=== PATIENT | male | born 1965 | race Caucasian/White ===

== ENCOUNTER 2021-04-28 22:20 | Emergency (ER) | payer OTHER ==
--- NOTE | 2021-04-28 22:24 | ERPHSYRPT ---
- History of Present Illness Time Seen by Provider: 04/28/21 22:24 Source: patient Exam Limitations: no limitations Physician History: This is a 56-year-old overweight white male who has had several day history of cough, loss of taste, fever, myalgias and arthralgias, shortness of breath, nausea and vomiting and was diagnosed today with COVID-19 infection. The specimen was obtained 48 hours ago. Patient symptom of cough is his biggest complaint. He denies chest pain. He does not have abdominal pain. Patient is on prednisone and is using a metered-dose inhaler of albuterol. Timing/Duration: day(s) (Symptoms for 3 to 4 days), worse Cough Quality/Degree: moderate, dry cough Associated Symptoms: fever, cough, muscle aches, sore throat, No chest pain/soreness Allergies/Adverse Reactions: Penicillins Adverse Reaction (Intermediate, Verified 04/28/21 22:32) Anaphylactic Reaction Home Medications: Albuterol 8 gm Mdi Hfa [Ventolin Hfa MDI] 2 puffs IH Q4HPRN PRN 04/28/21 [History] Prednisone 20 mg [Deltasone 20 mg] 20 mg PO DAILY 04/28/21 [History] Travel Risk - International Travel Have you traveled outside of the country in past 3 weeks: No - Coronavirus Screening Are you exhibiting any of the following symptoms?: Yes Symptoms: Fever, Cough: New Onset, Vomiting/Diarrhea, Loss of Taste or Smell, Headaches/Body Aches/Fatigue Close contact with a COVID-19 positive Pt in past 14-21 Days: No - Review of Systems Constitutional: Fever Eyes: No Symptoms Ears, Nose, & Throat: Throat Pain Respiratory: Cough Cardiac: No Symptoms Abdominal/Gastrointestinal: Nausea, Vomiting, Appetite Changes, No Abdominal Pain, No Diarrhea Genitourinary Symptoms: No Symptoms Musculoskeletal: Arthralgias, Myalgias Skin: No Symptoms Neurological: No Symptoms Psychological: No Symptoms Endocrine: No Symptoms Hematologic/Lymphatic: No Symptoms Immunological/Allergic: No Symptoms All Other Systems: Reviewed and Negative - Past Medical History Pertinent Past Medical History: Yes - Past Surgical History Past Surgical History: Yes - Nursing Vital Signs Nursing Vital Signs: Initial Vital Signs Temperature 99.4 F 04/28/21 22:21 Pulse Rate 121 H 04/28/21 22:21 Respiratory Rate 24 04/28/21 22:21 Blood Pressure 145/89 04/28/21 22:21 O2 Sat by Pulse Oximetry 94 L 04/28/21 22:21 Pain Scale Pain Intensity 0 - Physical Exam General Appearance: no apparent distress, alert, anxiety, obese Eye Exam: PERRL/EOMI, eyes nml inspection Ears, Nose, Throat Exam: normal ENT inspection, moist mucous membranes Neck Exam: normal inspection, non-tender, supple, full range of motion Respiratory Exam: normal breath sounds, lungs clear, airway intact, No chest tenderness, No respiratory distress Cardiovascular Exam: tachycardia Gastrointestinal/Abdomen Exam: soft, normal bowel sounds, No tenderness Rectal Exam: not done Back Exam: normal inspection, normal range of motion, No CVA tenderness, No vertebral tenderness Extremity Exam: normal inspection, normal range of motion, pelvis stable Neurologic Exam: alert, oriented x 3, cooperative, 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 tested, normal mood/affect, nml cerebellar function, nml station & gait, sensation nml Skin Exam: normal color, warm, dry Lymphatic Exam: No inguinal node tender (L) SpO2 Interpretation: borderline oxygenation SpO2: 94 O2 Delivery: Room Air - Course Nursing assessment & vital signs reviewed: Yes Ordered Tests: Active Orders 24 hr Category Date Time Status IV Insertion STAT Care 04/28/21 22:26 Active Isolation, Initiate & Maintain STAT Care 04/28/21 22:27 Active Pulse Oximetry (ED) STAT Care 04/28/21 22:26 Active CHEST 1 VIEW (PORTABLE) Stat Exams 04/28/21 22:27 Ordered BLOOD CULTURE Stat Lab 04/28/21 22:45 Received CBC W DIFF Stat Lab 04/28/21 22:26 Completed CMP Stat Lab 04/28/21 22:26 Completed D-DIMER QUANTITATIVE Stat Lab 04/28/21 22:26 Completed INFLUENZA A+B VIRGIL Stat Lab 04/28/21 22:45 Completed Lactic Acid Stat Lab 04/28/21 23:28 Completed Holmes Screen Stat Lab 04/28/21 22:26 Completed Respiratory Therapy Assessment DAILY RT 04/28/21 23:01 Completed Medication Summary Generic Name Dose Route Start Last Admin Trade Name Freq PRN Reason Stop Dose Admin Albuterol Sulfate 4 puff 04/28/21 23:01 04/28/21 23:11 Albuterol Common Canister Inhaler IH 05/28/21 23:00 4 puff Q4H PRN PRN Administration SHORTNESS OF BREATH Discontinued Medications Generic Name Dose Route Start Last Admin Trade Name Nithya PRN Reason Stop Dose Admin Hydrocodone Bitart/Acetaminophen 10 ml 04/28/21 22:39 04/28/21 22:53 Hydrocodone/Acetaminophen 5 Ml Udcup PO 04/28/21 22:40 10 ml STAT STA Administration Hydrocodone Bitart/Acetaminophen Confirm 04/28/21 22:52 Hydrocodone/Acetaminophen 5 Ml Udcup Administered 04/28/21 22:53 Dose 10 ml .ROUTE .STK-MED ONE Methylprednisolone Sodium 0 mg 04/28/21 22:39 04/28/21 22:53 Succinate 125 mg/ Sterile IV 04/28/21 22:40 125 mg Water 2 ml STAT ONE Administration Sodium Chloride 1,000 mls @ 999 mls/hr 04/28/21 22:26 04/28/21 22:35 Sodium Chloride 0.9% 1000 Ml IV 04/28/21 23:26 999 mls/hr .Q1H1M STA Administration Sodium Chloride Confirm 04/28/21 22:35 Sodium Chloride 0.9% 1000 Ml Administered 04/28/21 22:36 Dose 1,000 mls @ ud .ROUTE .STK-MED ONE Ibuprofen 600 mg 04/28/21 22:39 04/28/21 22:53 Ibuprofen 600 Mg Tablet PO 04/28/21 22:40 600 mg STAT ONE Administration Ibuprofen Confirm 04/28/21 22:51 Ibuprofen 600 Mg Tablet Administered 04/28/21 22:52 Dose 600 mg .ROUTE .STK-MED ONE Methylprednisolone Sodium Succinate Confirm 04/28/21 22:52 Methylprednis Sod Succ 125 Mg/2 Ml Vial Administered 04/28/21 22:53 Dose 125 mg .ROUTE .STK-MED ONE Sterile Water Confirm 04/28/21 22:52 Water For Injection,Sterile 10 Ml Vial Administered 04/28/21 22:53 Dose 10 ml IJ .STK-MED ONE Lab/Rad Data: Laboratory Result Diagrams 04/28/21 22:26 04/28/21 22:26 Laboratory Results 04/28/21 04/28/21 04/28/21 Range/Units 23:28 22:45 22:26 WBC (4.0-10.5) K/mm3 RBC (4.1-5.6) M/mm3 Hgb (12.5-18.0) gm/dl Hct (42-50) % MCV (78-100) fl MCH (26-32) pg MCHC (32-36) g/dl RDW (11.5-14.0) % Plt Count (150-450) K/mm3 MPV (7.5-11.0) fl Gran % (36.0-66.0) % Eos # (Auto) (0-0.5) Absolute Lymphs (auto) (1.0-4.6) Absolute Monos (auto) (0.0-1.3) Lymphocytes % (24.0-44.0) % Monocytes % (0.0-12.0) % Eosinophils % (0.00-5.0) % Basophils % (0.0-0.4) % Absolute Granulocytes (1.4-6.9) Basophils # (0-0.4) D-Dimer (215-500) ng/mL Sodium (137-145) mmol/L Potassium (3.5-5.1) mmol/L Chloride (98-107) mmol/L Carbon Dioxide (22-30) mmol/L Anion Gap (5-15) MEQ/L BUN (9-20) mg/dL Creatinine (0.66-1.25) mg/dL Estimated GFR ML/MIN Glucose (74-106) mg/dL Lactic Acid 1.7 (0.4-2.0) Calcium (8.4-10.2) mg/dL Total Bilirubin (0.2-1.3) mg/dL AST (17-59) U/L ALT (0-50) U/L Alkaline Phosphatase (38-126) U/L Serum Total Protein (6.3-8.2) g/dL Albumin (3.5-5.0) g/dL Monoscreen POSITIVE (Negative) Influenza Type A Ag NEGATIVE (NEGATIVE) Influenza Type B Ag NEGATIVE (NEGATIVE) 04/28/21 04/28/21 04/28/21 Range/Units 22:26 22:26 22:26 WBC 7.3 (4.0-10.5) K/mm3 RBC 4.95 (4.1-5.6) M/mm3 Hgb 14.1 (12.5-18.0) gm/dl Hct 41.4 L (42-50) % MCV 83.6 (78-100) fl MCH 28.5 (26-32) pg MCHC 34.1 (32-36) g/dl RDW 13.0 (11.5-14.0) % Plt Count 240 (150-450) K/mm3 MPV 8.9 (7.5-11.0) fl Gran % 79.4 H (36.0-66.0) % Eos # (Auto) 0 (0-0.5) Absolute Lymphs (auto) 0.94 L (1.0-4.6) Absolute Monos (auto) 0.53 (0.0-1.3) Lymphocytes % 13.0 L (24.0-44.0) % Monocytes % 7.3 (0.0-12.0) % Eosinophils % 0.0 (0.00-5.0) % Basophils % 0.3 (0.0-0.4) % Absolute Granulocytes 5.76 (1.4-6.9) Basophils # 0.02 (0-0.4) D-Dimer 300 (215-500) ng/mL Sodium 137 (137-145) mmol/L Potassium 3.6 (3.5-5.1) mmol/L Chloride 101 (98-107) mmol/L Carbon Dioxide 25 (22-30) mmol/L Anion Gap 13.8 (5-15) MEQ/L BUN 24 H (9-20) mg/dL Creatinine 1.18 (0.66-1.25) mg/dL Estimated GFR > 60.0 ML/MIN Glucose 149 H (74-106) mg/dL Lactic Acid (0.4-2.0) Calcium 8.4 (8.4-10.2) mg/dL Total Bilirubin 0.60 (0.2-1.3) mg/dL AST 47 (17-59) U/L ALT 36 (0-50) U/L Alkaline Phosphatase 117 (38-126) U/L Serum Total Protein 7.4 (6.3-8.2) g/dL Albumin 4.0 (3.5-5.0) g/dL Monoscreen (Negative) Influenza Type A Ag (NEGATIVE) Influenza Type B Ag (NEGATIVE) - Progress Progress: improved Air Movement: good Blood Culture(s) Obtained: Yes Antibiotics given: No Counseled pt/family regarding: lab results, diagnosis, need for follow-up, rad results - Departure Departure Disposition: Home Clinical Impression: COVID-19 virus infection, Mononucleosis Condition: Stable Critical Care Time: No Referrals: GARETH KELLER [ACTIVE STAFF] - Follow up/PCP as directed Additional Instructions: Take your medication as prescribed. Drink plenty of fluids. Quarantine yourself per protocol provided you. Prescriptions: Ondansetron ODT 4 MG [Zofran Odt 4 mg] 4 mg PO Q6H PRN PRN #10 tablet PRN Reason: Vomiting Hydrocodone/Acetaminophen [Hydrocodone-Acetamn 7.5-325/15] 10 ml PO Q8H PRN PRN #120 ml MDD 30 ml PRN Reason: Cough
[2021-04-28] MEDS ORDERED: Sodium Chloride 0.9% 1000 ML 1,000 ML IV STA (22:26)
[2021-04-28] MEDS ORDERED: Sodium Chloride 0.9% 1000 ML 1,000 ML ONE (22:35)
[2021-04-28] MEDS ORDERED: MOTRIN 600 MG PO ONE (22:39)
[2021-04-28] MEDS ORDERED: HYDROCODONE-ACETAMIN 2.5-108/5 ML SOLUTION PO STA ×2 (22:39→23:47)
[2021-04-28] MEDS ORDERED: solu-MEDROL 125 MG, Sterile H2O 10 ml 2 ML IV ONE ×2 (22:39)
[2021-04-28] MEDS ORDERED: MOTRIN 600 MG ONE (22:51)
[2021-04-28] MEDS ORDERED: HYDROCODONE-ACETAMIN 2.5-108/5 ML SOLUTION ONE (22:52)
[2021-04-28] MEDS ORDERED: Sterile H2O 10 ml IJ ONE (22:52)
[2021-04-28] MEDS ORDERED: solu-MEDROL ONE (22:52)
[2021-04-28 23:01] LABS: Absolute Neutrophil Ct (ANC) 5.76 (1.4-6.9); Basophil (Absolute #) 0.02 (0-0.4); Eosinophil (Absolute #) 0 (0-0.5); Hematocrit 41.4 % (42-50); Hemoglobin 14.1 gm/dl (12.5-18.0); Lymphocyte (Absolute #) 0.94 (1.0-4.6); Mean Cell Volume 83.6 fl (78-100); Mean Corpuscular Hemoglobin 28.5 pg (26-32); Mean Corpuscular Hgb Concent. 34.1 g/dl (32-36); Mean Platelet Volume 8.9 fl (7.5-11.0); Monocyte (Absolute #) 0.53 (0.0-1.3); Monocytes % 7.3 % (0.0-12.0); Neutrophil % 79.4 % (36.0-66.0); Platelet Count 240 K/mm3 (150-450); Red Blood Count 4.95 M/mm3 (4.1-5.6); White Blood Count 7.3 K/mm3 (4.0-10.5)
[2021-04-28] MEDS ORDERED: VENTOLIN COMMON CANISTER IH PRN (23:01)
[2021-04-28 23:23] LABS: ALKALINE PHOSPHATASE 117 U/L (38-126); ANION GAP 13.8 MEQ/L (5-15); BLOOD UREA NITROGEN 24 mg/dL (9-20); CHLORIDE 101 mmol/L (98-107); Calcium 8.4 mg/dL (8.4-10.2); Carbon Dioxide 25 mmol/L (22-30); Creatinine 1 1.18 mg/dL (0.66-1.25); EST GLOMERULAR FILTRATION RATE > 60.0 ML/MIN; Glucose 149 mg/dL (74-106); Potassium 3.6 mmol/L (3.5-5.1); SGOT/AST 47 U/L (17-59); SGPT/ALT 36 U/L (0-50); SODIUM 137 mmol/L (137-145); Total Protein 7.4 g/dL (6.3-8.2)
[2021-04-28 23:29] LABS: INFLUENZA A NEGATIVE (NEGATIVE); INFLUENZA B NEGATIVE (NEGATIVE)
[2021-04-28 23:37] VITALS: O2SAT 94
[2021-04-29] MEDS ORDERED: HYDROCODONE-ACETAMIN 2.5-108/5 ML SOLUTION ONE (00:30)
[2021-04-29 00:40] VITALS: BP 126/74; PULSE 105
== END 2021-04-29 00:37 | disposition home or self-care (01) ==
LOC: ED 22:20
DX: U07.1 COVID-19 (principal); B27.90 Infectious mononucleosis, unspecified without complication; R05.9 Cough, unspecified; R43.9 Unspecified disturbances of smell and taste; R50.9 Fever, unspecified; M79.10 Myalgia, unspecified site; R06.02 Shortness of breath; R11.2 Nausea with vomiting, unspecified; Z79.52 Long term (current) use of systemic steroids; Z79.891 Long term (current) use of opiate analgesic
CPT/HCPCS: 36000; 36415; 80053; 83605; 85025; 85379; 86308; 87040; 87400; 93005; 94640; 94760; 96360; 96374; 99284; J2930; A9270-GY

== ENCOUNTER 2021-05-02 08:02 | Inpatient (IN) | payer OTHER ==
[2021-05-02] MEDS ORDERED: Sodium Chloride 0.9% 1000 ML 1,000 ML ONE (08:05)
[2021-05-02] MEDS ORDERED: solu-MEDROL 125 MG, Sterile H2O 10 ml 2 ML IV ONE ×2 (08:14)
[2021-05-02] MEDS ORDERED: Ativan 2 MG/1 ML VIAL IV ONE (08:14)
--- NOTE | 2021-05-02 08:14 | ERPHSYRPT ---
- History of Present Illness Time Seen by Provider: 05/02/21 08:10 Source: patient Exam Limitations: no limitations Physician History: This is a 56-year-old white male patient who presents with worsening shortness of breath over the last few days. Patient was diagnosed with Covid infection a few days ago. He has been to the infusion clinic as well. His symptoms of c ough shortness of breath and chest pain were worsening over the weekend. He was seen in this emergency department on 04/28/2021. He was given a prescription of hydrocodone elixir for his cough and he already had prednisone and a metered- dose inhaler of albuterol. Patient is here today because he feels short of breath and his room air oxygenation was 60 to 62% based on his pulse oximetry at home. Timing/Duration: day(s), worse (Over the last few days) Activities at Onset: activity (Worsens), rest (Improves) Severity of Dyspnea-Max: moderate Severity of Dyspnea-Current: moderate Modifying Factors: Improves With: activity (Worsens), coughing, oxygen Associated Symptoms: anxiety, cough, chest pain/discomfort Allergies/Adverse Reactions: Penicillins Adverse Reaction (Intermediate, Verified 05/02/21 08:26) Anaphylactic Reaction Home Medications: Albuterol 8 gm Mdi Hfa [Ventolin Hfa MDI] 2 puffs IH Q4HPRN PRN 04/28/21 [History] Hx Tetanus, Diphtheria Vaccination/Date Given: No Hx Influenza Vaccination/Date Given: No Hx Pneumococcal Vaccination/Date Given: No Travel Risk - International Travel Have you traveled outside of the country in past 3 weeks: No - Coronavirus Screening Are you exhibiting any of the following symptoms?: Yes Symptoms: Cough: New Onset, Shortness of Breath, Loss of Taste or Smell, Headaches/Body Aches/Fatigue Close contact with a COVID-19 positive Pt in past 14-21 Days: No - Vaccine Status Have you recieved a Covid-19 vaccination: No - Review of Systems Constitutional: No Symptoms Eyes: No Symptoms Ears, Nose, & Throat: No Symptoms Respiratory: Cough, Dyspnea Cardiac: Chest Pain Abdominal/Gastrointestinal: No Symptoms Genitourinary Symptoms: No Symptoms Musculoskeletal: Arthralgias, Myalgias Skin: No Symptoms Neurological: No Symptoms Psychological: Anxiety Endocrine: No Symptoms Hematologic/Lymphatic: No Symptoms Immunological/Allergic: No Symptoms All Other Systems: Reviewed and Negative - Past Medical History Pertinent Past Medical History: Yes Neurological History: No Pertinent History ENT History: No Pertinent History Cardiac History: No Pertinent History Respiratory History: Pneumonia Endocrine Medical History: No Pertinent History Musculoskeletal History: Fractures GI Medical History: No Pertinent History History: No Pertinent History Psycho-Social History: No Pertinent History Male Reproductive Disorders: No Pertinent History Other Medical History: fx ribs - Past Surgical History Past Surgical History: Yes - Social History Smoking Status: Former smoker Exposure to second hand smoke: Yes Drug Use: none Patient Lives Alone: No - Nursing Vital Signs Nursing Vital Signs: Initial Vital Signs Temperature 99.3 F 05/02/21 08:15 Pulse Rate 125 H 05/02/21 08:15 Respiratory Rate 32 H 05/02/21 08:15 Blood Pressure 141/87 05/02/21 08:15 O2 Sat by Pulse Oximetry 62 L 05/02/21 08:15 Pain Scale Pain Intensity 3 - Physical Exam General Appearance: mild distress, alert, anxiety Eye Exam: PERRL/EOMI, eyes nml inspection Ears, Nose, Throat Exam: hearing grossly normal, normal ENT inspection, normal pharynx Neck Exam: normal inspection, non-tender, supple, full range of motion Respiratory Exam: normal breath sounds, chest tenderness, lungs clear, respiratory distress, airway intact Cardiovascular/Chest Exam: tachycardia Abdominal/Gastrointestinal Exam: soft, normal bowel sounds, No tenderness Rectal Exam: not done Extremity Exam: non-tender Neurologic Exam: alert, oriented x 3, cooperative, 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 tested, normal mood/affect, nml cerebellar function, nml station & gait, sensation nml Skin Exam: normal color, warm, dry Lymphatic Exam: No adenopathy SpO2 Interpretation: hypoxic O2 Delivery: Room Air - Course Nursing assessment & vital signs reviewed: Yes EKG Interpreted by Me: RATE (110), Sinus Tach, NORMAL AXIS, NORMAL INTERVALS, NORMAL QRS, NORMAL ST-T, Other (No acute ischemic changes.) Ordered Tests: Active Orders 24 hr Category Date Time Status EKG-ER Only STAT Care 05/02/21 08:14 Active IV Insertion STAT Care 05/02/21 08:14 Active Pulse Oximetry (ED) STAT Care 05/02/21 08:14 Active CHEST 1 VIEW (PORTABLE) Stat Exams 05/02/21 08:15 Completed CHEST WITH CONTRAST [CT] Stat Exams 05/02/21 09:08 Completed ARTERIAL BLOOD GASES Stat Lab 05/02/21 08:08 Completed BLOOD CULTURE Stat Lab 05/02/21 08:40 Received CBC W DIFF Stat Lab 05/02/21 08:30 Completed CMP Stat Lab 05/02/21 08:30 Completed D-DIMER QUANTITATIVE Stat Lab 05/02/21 08:30 Completed INFLUENZA A+B VIRGIL Stat Lab 05/02/21 08:40 Completed Lactic Acid Stat Lab 05/02/21 08:08 Completed Lactic Acid Stat Lab 05/02/21 10:19 Received Manual Differential NC Stat Lab 05/02/21 08:30 Completed NT PRO BNP Stat Lab 05/02/21 08:30 Completed TROPONIN Q3H Lab 05/02/21 08:30 Completed TROPONIN Q3H Lab 05/02/21 11:15 Ordered TROPONIN Q3H Lab 05/02/21 14:15 Ordered TROPONIN Q3H Lab 05/02/21 17:15 Ordered TROPONIN Q3H Lab 05/02/21 20:15 Ordered Transfer Order Routine Transfer 05/02/21 Ordered Medication Summary Generic Name Dose Route Start Last Admin Trade Name Freq PRN Reason Stop Dose Admin Sodium Chloride 1,000 mls @ 100 mls/hr 05/02/21 08:15 05/02/21 08:20 Sodium Chloride 0.9% 1000 Ml IV 06/01/21 08:14 100 mls/hr .Q10H PAT Administration Discontinued Medications Generic Name Dose Route Start Last Admin Trade Name Freq PRN Reason Stop Dose Admin Methylprednisolone Sodium 0 mg 05/02/21 08:14 05/02/21 08:23 Succinate 125 mg/ Sterile IV 05/02/21 08:15 125 mg Water 2 ml STAT ONE Administration Sodium Chloride Confirm 05/02/21 08:05 Sodium Chloride 0.9% 1000 Ml Administered 05/02/21 08:06 Dose 1,000 mls @ ud .ROUTE .STK-MED ONE Lorazepam 1 mg 05/02/21 08:14 05/02/21 08:22 Lorazepam 2 Mg/1 Ml 2 Mg Vial IV 05/02/21 08:15 1 mg STAT ONE Administration Lorazepam Confirm 05/02/21 08:21 Lorazepam 2 Mg/1 Ml 2 Mg Vial Administered 05/02/21 08:22 Dose 2 mg .ROUTE .STK-MED ONE Methylprednisolone Sodium Succinate Confirm 05/02/21 08:22 Methylprednis Sod Succ 125 Mg/2 Ml Vial Administered 05/02/21 08:23 Dose 125 mg .ROUTE .STK-MED ONE Sterile Water Confirm 05/02/21 08:21 Water For Injection,Sterile 10 Ml Vial Administered 05/02/21 08:22 Dose 10 ml IJ .STK-MED ONE Lab/Rad Data: Laboratory Result Diagrams 05/02/21 08:30 05/02/21 08:30 Laboratory Results 05/02/21 05/02/21 05/02/21 Range/Units 08:40 08:30 08:30 WBC (4.0-10.5) K/mm3 RBC (4.1-5.6) M/mm3 Hgb (12.5-18.0) gm/dl Hct (42-50) % MCV (78-100) fl MCH (26-32) pg MCHC (32-36) g/dl RDW (11.5-14.0) % Plt Count (150-450) K/mm3 MPV (7.5-11.0) fl Segmented Neutrophils (36.-66.) % Band Neutrophils (0.0-2.0) % Lymphocytes (Manual) (24-44) % Monocytes (Manual) (0.0-12.0) % Platelet Estimate (NORMAL) RBC Morphology D-Dimer 875 H* (215-500) ng/mL Puncture Site pCO2 (35-45) mmHg pO2 (75-100) mmHg Base Excess (-2.0-2.0) O2 Saturation (94-100) g/dF ABG pH (7.35-7.45) ABG HCO3 (22-28) ABG O2 Sat (Measured) (95-100) % Tony Test A-a Gradient a/A Ratio Hemoglobin Carboxyhemoglobin (0.0-6.9) % THgb Methemoglobin (1.4-1.5) % Potassium (3.5-5.1) Temperature C POC O2 Flow Rate % Sodium (137-145) mmol/L Chloride (98-107) mmol/L Carbon Dioxide (22-30) mmol/L Anion Gap (5-15) MEQ/L BUN (9-20) mg/dL Creatinine (0.66-1.25) mg/dL Estimated GFR ML/MIN Glucose (74-106) mg/dL Lactic Acid (0.4-2.0) Calcium (8.4-10.2) mg/dL Total Bilirubin (0.2-1.3) mg/dL AST (17-59) U/L ALT (0-50) U/L Alkaline Phosphatase (38-126) U/L Troponin I < 0.012 (0.000-0.034) ng/mL NT-Pro-B Natriuret Pep (0-900) pg/mL Serum Total Protein (6.3-8.2) g/dL Albumin (3.5-5.0) g/dL Influenza Type A Ag NEGATIVE (NEGATIVE) Influenza Type B Ag NEGATIVE (NEGATIVE) 05/02/21 05/02/21 05/02/21 Range/Units 08:30 08:30 08:08 WBC 11.3 H (4.0-10.5) K/mm3 RBC 5.08 (4.1-5.6) M/mm3 Hgb 14.3 (12.5-18.0) gm/dl Hct 43.4 (42-50) % MCV 85.4 (78-100) fl MCH 28.1 (26-32) pg MCHC 32.9 (32-36) g/dl RDW 12.8 (11.5-14.0) % Plt Count 373 (150-450) K/mm3 MPV 9.2 (7.5-11.0) fl Segmented Neutrophils 84 H (36.-66.) % Band Neutrophils 1 (0.0-2.0) % Lymphocytes (Manual) 12 L (24-44) % Monocytes (Manual) 3 (0.0-12.0) % Platelet Estimate NORMAL (NORMAL) RBC Morphology NORMAL D-Dimer (215-500) ng/mL Puncture Site LEFT BRACHIAL pCO2 28 L (35-45) mmHg pO2 127 H* (75-100) mmHg Base Excess 4.5 H (-2.0-2.0) O2 Saturation 96.9 (94-100) g/dF ABG pH 7.57 H* (7.35-7.45) ABG HCO3 25.7 (22-28) ABG O2 Sat (Measured) 99.1 (95-100) % Tony Test NOT APPLICABLE A-a Gradient 551 a/A Ratio 0.19 Hemoglobin 14.5 Carboxyhemoglobin 1.3 (0.0-6.9) % THgb Methemoglobin 1.0 L (1.4-1.5) % Potassium 3.7 3.5 (3.5-5.1) Temperature 37.0 C POC O2 Flow Rate 100 % Sodium 139 (137-145) mmol/L Chloride 98 (98-107) mmol/L Carbon Dioxide 28 (22-30) mmol/L Anion Gap 16.2 H (5-15) MEQ/L BUN 22 H (9-20) mg/dL Creatinine 1.15 (0.66-1.25) mg/dL Estimated GFR > 60.0 ML/MIN Glucose 123 H (74-106) mg/dL Lactic Acid 2.9 H (0.4-2.0) Calcium 8.5 (8.4-10.2) mg/dL Total Bilirubin 1.00 (0.2-1.3) mg/dL AST 59 (17-59) U/L ALT 42 (0-50) U/L Alkaline Phosphatase 132 H (38-126) U/L Troponin I (0.000-0.034) ng/mL NT-Pro-B Natriuret Pep 400 (0-900) pg/mL Serum Total Protein 7.4 (6.3-8.2) g/dL Albumin 4.1 (3.5-5.0) g/dL Influenza Type A Ag (NEGATIVE) Influenza Type B Ag (NEGATIVE) - Progress Progress: improved, re-examined Air Movement: good Progress Note: 05/02/21 09:06 Chest x-ray shows new moderate diffuse bilateral airspace disease without consolidation or effusion. 05/02/21 10:57 Medical decision making: This patient needs inpatient monitoring and management. I will give Dr. Varela a phone call. The patient, without oxygen, drops to 87 to 89% on room air. Blood Culture(s) Obtained: Yes Discussed with : Other (Dr. Varela) Counseled pt/family regarding: lab results, diagnosis, rad results - Departure Departure Disposition: In-patient Admission Clinical Impression: Pneumonia due to COVID-19 virus, Hypoxia, Tachycardia with heart rate 100-120 beats per minute Condition: Fair Critical Care Time: Yes Critical Care Time(excluding separately billable procedures): Critical 30-74 mins (30 minutes) Referrals: DOCTOR,NO FAMILY [Primary Care Provider] - Follow up/PCP as directed
[2021-05-02] MEDS ORDERED: Sodium Chloride 0.9% 1000 ML 1,000 ML IV SCH (08:15)
[2021-05-02 08:18] LABS: A-aADO2 551; ABG HEMOGLOBIN 14.5; ABG POTASSIUM 3.5 (3.5-5.1); ABG SITE LEFT BRACHIAL; ARTERIAL BLD GAS O2 SATURATION 99.1 % (95-100); ARTERIAL BLOOD GAS BASE EXCESS 4.5 (-2.0-2.0); ARTERIAL BLOOD GAS FIO2 100 %; ARTERIAL BLOOD GAS PCO2 28 mmHg (35-45); ARTERIAL BLOOD GAS PO2 127 mmHg (75-100); ARTERIAL BLOOD GAS pH 7.57 (7.35-7.45); CARBOXYHEMOGLOBIN 1.3 % THgb (0.0-6.9); HCO3- 25.7 (22-28); HGB O2 SAT 96.9 g/dF (94-100); Lactic Acid 2.9 (0.4-2.0)
[2021-05-02] MEDS ORDERED: Ativan 2 MG/1 ML VIAL ONE (08:21)
[2021-05-02] MEDS ORDERED: Sterile H2O 10 ml IJ ONE (08:21)
[2021-05-02] MEDS ORDERED: solu-MEDROL ONE (08:22)
--- NOTE | 2021-05-02 08:56 | XRAY ---
Indication: Cough and short of breath. Positive Covid 19. Comparison: February 02, 2013. Portable apical lordotic chest demonstrates new moderate diffuse bilateral airspace disease without consolidation/large effusion. Heart not enlarged. Bony thorax intact.
[2021-05-02 09:05] LABS: Hematocrit 43.4 % (42-50); Hemoglobin 14.3 gm/dl (12.5-18.0); Mean Cell Volume 85.4 fl (78-100); Mean Corpuscular Hemoglobin 28.1 pg (26-32); Mean Corpuscular Hgb Concent. 32.9 g/dl (32-36); Mean Platelet Volume 9.2 fl (7.5-11.0); Platelet Count 373 K/mm3 (150-450); Red Blood Count 5.08 M/mm3 (4.1-5.6); Red Cell Distribution Width 12.8 % (11.5-14.0); White Blood Count 11.3 K/mm3 (4.0-10.5)
[2021-05-02 09:12] LABS: ALBUMIN 4.1 g/dL (3.5-5.0); ALKALINE PHOSPHATASE 132 U/L (38-126); ANION GAP 16.2 MEQ/L (5-15); BLOOD UREA NITROGEN 22 mg/dL (9-20); CHLORIDE 98 mmol/L (98-107); Calcium 8.5 mg/dL (8.4-10.2); Carbon Dioxide 28 mmol/L (22-30); Creatinine 1 1.15 mg/dL (0.66-1.25); EST GLOMERULAR FILTRATION RATE > 60.0 ML/MIN; Glucose 123 mg/dL (74-106); NT PRO BNP 400 pg/mL (0-900); Potassium 3.7 mmol/L (3.5-5.1); SGOT/AST 59 U/L (17-59); SGPT/ALT 42 U/L (0-50); SODIUM 139 mmol/L (137-145); Total Protein 7.4 g/dL (6.3-8.2)
[2021-05-02 09:13] LABS: BAND 1 % (0.0-2.0); Lymphocytes 12 % (24-44); Monocyte 3 % (0.0-12.0); Neutrophils 84 % (36.-66.); Platelet Estimate NORMAL (NORMAL); Total Cells Counted 100
[2021-05-02 09:37] LABS: INFLUENZA A NEGATIVE (NEGATIVE); INFLUENZA B NEGATIVE (NEGATIVE)
--- NOTE | 2021-05-02 10:31 | XRAY ---
Indication: Short of breath, nausea, and vomiting. Elevated d-dimer. Multiple contiguous images obtained through the chest using 80 cc Isovue 370 contrast and PE protocol. Comparison: February 06, 2013. There is good opacification of the pulmonary arteries to include the lobar and segmental branches. No pulmonary embolus. Heart is not enlarged. Aorta is normal in course and caliber. No pathologic mediastinal/hilar lymphadenopathy. Enlarging moderate-sized hiatal hernia. Lungs demonstrates new moderate/significant diffuse bilateral airspace disease without consolidation/effusion. Bony thorax intact. Limited upper abdomen again demonstrates mild fatty liver and a few splenic calcified granulomas. Impression: 1. Negative pulmonary embolus. 2. New diffuse bilateral airspace disease. Commonly report imaging features of Covid 19 pneumonia are present. Other processes such as influenza pneumonia and organizing pneumonia, as can be seen with drug toxicity and connective-tissue disease, can cause a similar imaging pattern. 2. Incidental hiatal hernia, fatty liver, and old granulomatous disease.
[2021-05-02] MEDS ORDERED: Ativan 1 MG PO PRN (13:14)
[2021-05-02] MEDS ORDERED: Zofran 4 MG/2 ML VIAL IV PRN (13:14)
[2021-05-02] MEDS: Sodium Chloride 0.9% 1000 ML 1,000 ML IV SCH (13:33)
[2021-05-02] MEDS ORDERED: TYLENOL EXTRA STRENGTH 500 MG PO PRN (13:46)
[2021-05-02] MEDS: OLUMIANT PO SCH (13:55)
[2021-05-02] MEDS: DECADRON 10MG INJ. IV SCH (13:56)
[2021-05-02] MEDS: ENOXAPARIN SODIUM SQ SCH (13:57)
[2021-05-02] MEDS ORDERED: REMDESIVIR 200 MG in Sodium Chloride 0.9% 250 ML 250 ML IV ONE (14:30)
[2021-05-02 16:04] LABS: Appearance CLEAR (CLEAR); Bilirubin NEGATIVE (NEGATIVE); Blood SMALL Ery/ul (0-5); Glucose NEGATIVE (NEGATIVE); Ketones SMALL (NEGATIVE); Leukocyte Esterase NEGATIVE (NEGATIVE); Nitrite NEGATIVE (NEGATIVE); Protein,Urine Dip 30 (Negative); Specific Gravity 1.048 (1.005-1.025); Urobilinogen 4 mg/dL (0-1)
[2021-05-02] MEDS: HYDROCODONE-CHLORPHEN ER SUSP PO PRN (18:28)
[2021-05-03 05:25] LABS: Hematocrit 38.2 % (42-50); Hemoglobin 12.4 gm/dl (12.5-18.0); Mean Cell Volume 86.4 fl (78-100); Mean Corpuscular Hemoglobin 28.1 pg (26-32); Mean Corpuscular Hgb Concent. 32.5 g/dl (32-36); Mean Platelet Volume 9.1 fl (7.5-11.0); Platelet Count 371 K/mm3 (150-450); Red Blood Count 4.42 M/mm3 (4.1-5.6); Red Cell Distribution Width 12.8 % (11.5-14.0); White Blood Count 9.5 K/mm3 (4.0-10.5)
[2021-05-03 05:47] LABS: ALBUMIN 3.5 g/dL (3.5-5.0); ALKALINE PHOSPHATASE 101 U/L (38-126); ANION GAP 12.5 MEQ/L (5-15); BLOOD UREA NITROGEN 27 mg/dL (9-20); CHLORIDE 103 mmol/L (98-107); Carbon Dioxide 25 mmol/L (22-30); Creatinine 1 0.98 mg/dL (0.66-1.25); EST GLOMERULAR FILTRATION RATE > 60.0 ML/MIN; Glucose 159 mg/dL (74-106); NT PRO BNP 267 pg/mL (0-900); Potassium 3.9 mmol/L (3.5-5.1); SGOT/AST 34 U/L (17-59); SGPT/ALT 35 U/L (0-50); SODIUM 137 mmol/L (137-145); Total Protein 6.8 g/dL (6.3-8.2)
--- NOTE | 2021-05-03 08:09 | HP ---
CHIEF COMPLAINT: Shortness of breath. HISTORY OF PRESENT ILLNESS: The patient is a 56-year-old white male. He has been coughing for several weeks. He was seen in the emergency room several days ago and was given a prescription of Tussionex, prednisone, Albuterol and sent home. He came back today. His O2 was down to 62% so he was started on oxygen. He tested positive for COVID and we made arrangements to keep him. He actually went to the infusion center yesterday, the day before admission also. TRAVEL RISK: No international travel. CORONAVIRUS SCREENING: Exposure to COVID: He is not exactly for sure who gave it to him. MEDICATIONS: Albuterol. ALLERGIES: PENICILLINS. PAST MEDICAL HISTORY: He has been treated for pneumonia once and GI problems. REVIEW OF SYSTEMS: CONSTITUTIONAL: Just tired and achy, not too bad. HEENT: He still has his taste, just short of breath at rest and on any activity his O2 he states drops in the mid 80's. GI: No problems. MUSCULOSKELETAL: Aching all over. SKIN: No problems. ENDOCRINE: No diabetes. PSYCHOLOGIC: He feels anxious. SOCIAL HISTORY: He is a smoker apparently. PHYSICAL EXAMINATION: VITAL SIGNS: Temperature F, pulse , respirations HEENT: Pupils equal and reactive to light. NECK: Supple without adenopathy. CHEST: Clear. CVS: Regular rate. No murmurs or gallops. ABDOMEN: Soft. No tenderness or organomegaly. EXTREMITIES: Fair pulses. No edema. LAB DATA AND TESTS: His EKG is normal. Chest x-ray showed COVID pneumonia. His potassium was 3.7. His D-dimer was 875. White blood cell count 11.3, hemoglobin 14.3. Troponins were normal. Blood gas showed pCO2 low at 28, pH was 7.57 so he is hyperventilating, get his O2 up to 96 by the time this was taken. IMPRESSION: The patient has COVID pneumonia moderate with hypoxia. Negative for influenza. PLAN: Will treat him with all the normal COVID medicines Remdesivir, get cTnI, will anticoagulated him since the D-dimer is elevated. Give him some Ativan if needed. PROGNOSIS: [place] to be fair.
[2021-05-03] MEDS ORDERED: VENTOLIN COMMON CANISTER IH PRN (08:26)
[2021-05-03] MEDS: OLUMIANT PO SCH (10:16)
[2021-05-03] MEDS: ENOXAPARIN SODIUM SQ SCH (10:16)
[2021-05-03] MEDS: DECADRON 10MG INJ. IV SCH (10:16)
[2021-05-03] MEDS: REMDESIVIR 100 MG in Sodium Chloride 0.9% 100 ML BAG 100 ML IV SCH (10:19)
[2021-05-03] MEDS: HYDROCODONE-CHLORPHEN ER SUSP PO PRN (10:30)
--- NOTE | 2021-05-03 12:14 | PROG NOTE ---
DATE: 05/03/2021 CHIEF COMPLAINT: Very short of breath, vomiting. HISTORY: The patient is a 56-year-old white male diagnosed with COVID about a week ago. He came to the emergency room. I believe he got some antibodies, Zithromax and prednisone. He came back last night when he could not get his breath at all. 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 His O2 saturation was 61% when he got to the emergency room apparently and at home on oximeter. He has been coughing quite a bit and coughed up some blood. He has a Ventolin inhaler which he has been using. He is disabled secondary to his arthritis and shortness of breath from his lung cancer treatment. He is also a diabetic. He is very heavy. I do not have his medicines at home yet except he is on 100 units of Lantus and a large dose of Humalog and also another shot for his diabetes. Symptoms of cough. No loss of taste or smell. No vaccines. REVIEW OF SYSTEMS: CONSTITUTIONAL: Symptoms as above. HEENT: No problems hearing or seeing. CHEST: Chest hurts every time he coughs. It is better this morning. CVS: He told me he had a heart attack but it is not on his chart here. He is on cholesterol drugs. ABDOMEN: Nausea and vomiting has stopped this morning. Been on Zofran for a couple of days. Normally he has no problem eating. He also has been admitted in the distant past for pneumonia. ENDOCRINE: He has diabetes. GI: Vomiting recently. SOCIAL HISTORY: He quit smoking three years ago. He lives with his . PHYSICAL EXAMINATION: VITAL SIGNS: Initially temperature 99F, pulse 120, respirations 32. O2 saturation was 62% on 6 liters. He is on 8 liters and running 95%. GENERAL APPEARANCE: A large gentleman in no distress, very talkative and pleasant. HEENT: Pupils equal and reactive to light. NECK: Supple without adenopathy. CHEST: Clear right now. CVS: No murmurs or gallops. Heart sounds are distant. ABDOMEN: Obese. No tenderness or organomegaly. EXTREMITIES: No edema. IMPRESSION: The patient is positive for COVID. D-dimer is 780. His CT showed new diffuse bilateral airspace disease which is COVID. EKG is normal. PLAN: The patient is being treated with Remdesivir. He is fully anticoagulated, Decadron, antibodies. His O2 will be monitored. PROGNOSIS: Fair.
[2021-05-03] MEDS: Sodium Chloride 0.9% 1000 ML 1,000 ML IV SCH (21:14)
[2021-05-04 05:15] LABS: Hematocrit 37.1 % (42-50); Hemoglobin 12.1 gm/dl (12.5-18.0); Mean Cell Volume 86.5 fl (78-100); Mean Corpuscular Hemoglobin 28.2 pg (26-32); Mean Corpuscular Hgb Concent. 32.6 g/dl (32-36); Mean Platelet Volume 9.2 fl (7.5-11.0); Platelet Count 356 K/mm3 (150-450); Red Blood Count 4.29 M/mm3 (4.1-5.6); Red Cell Distribution Width 12.5 % (11.5-14.0); White Blood Count 10.7 K/mm3 (4.0-10.5)
[2021-05-04 05:55] LABS: ALBUMIN 3.2 g/dL (3.5-5.0); ALKALINE PHOSPHATASE 85 U/L (38-126); ANION GAP 10.8 MEQ/L (5-15); BLOOD UREA NITROGEN 29 mg/dL (9-20); CHLORIDE 103 mmol/L (98-107); Carbon Dioxide 26 mmol/L (22-30); Creatinine 1 0.95 mg/dL (0.66-1.25); EST GLOMERULAR FILTRATION RATE > 60.0 ML/MIN; Glucose 129 mg/dL (74-106); Potassium 3.7 mmol/L (3.5-5.1); SGOT/AST 28 U/L (17-59); SGPT/ALT 28 U/L (0-50); SODIUM 136 mmol/L (137-145); Total Protein 6.4 g/dL (6.3-8.2)
[2021-05-04] MEDS: OLUMIANT PO SCH (08:42)
[2021-05-04] MEDS: REMDESIVIR 100 MG in Sodium Chloride 0.9% 100 ML BAG 100 ML IV SCH (08:43)
[2021-05-04] MEDS: ENOXAPARIN SODIUM SQ SCH (08:43)
[2021-05-04] MEDS: DECADRON 10MG INJ. IV SCH (08:43)
[2021-05-04] MEDS: Pepcid 20 MG PO SCH (21:01)
[2021-05-04] MEDS: MAALOX ES 30 ML UNIT DOSE PO PRN (21:02)
[2021-05-05] MEDS: Sodium Chloride 0.9% 1000 ML 1,000 ML IV SCH (02:50)
[2021-05-05 06:01] LABS: ALKALINE PHOSPHATASE 82 U/L (38-126); ANION GAP 10.6 MEQ/L (5-15); BLOOD UREA NITROGEN 22 mg/dL (9-20); CHLORIDE 104 mmol/L (98-107); Calcium 7.8 mg/dL (8.4-10.2); Carbon Dioxide 25 mmol/L (22-30); Creatinine 1 0.89 mg/dL (0.66-1.25); EST GLOMERULAR FILTRATION RATE > 60.0 ML/MIN; Glucose 108 mg/dL (74-106); Potassium 3.5 mmol/L (3.5-5.1); SGOT/AST 32 U/L (17-59); SGPT/ALT 37 U/L (0-50); SODIUM 136 mmol/L (137-145); Total Protein 6.2 g/dL (6.3-8.2)
[2021-05-05 08:35] LABS: Hematocrit 37.2 % (42-50); Hemoglobin 12.1 gm/dl (12.5-18.0); Mean Cell Volume 86.7 fl (78-100); Mean Corpuscular Hemoglobin 28.2 pg (26-32); Mean Corpuscular Hgb Concent. 32.5 g/dl (32-36); Mean Platelet Volume 9.6 fl (7.5-11.0); Platelet Count 334 K/mm3 (150-450); Red Blood Count 4.29 M/mm3 (4.1-5.6); Red Cell Distribution Width 12.6 % (11.5-14.0); White Blood Count 9.9 K/mm3 (4.0-10.5)
[2021-05-05] MEDS: DECADRON 10MG INJ. IV SCH (09:47)
[2021-05-05] MEDS: ENOXAPARIN SODIUM SQ SCH (09:47)
[2021-05-05] MEDS: OLUMIANT PO SCH (09:48)
[2021-05-05] MEDS: REMDESIVIR 100 MG in Sodium Chloride 0.9% 100 ML BAG 100 ML IV SCH (09:48)
[2021-05-05] MEDS: MAALOX ES 30 ML UNIT DOSE PO PRN ×2 (09:59→23:42)
--- NOTE | 2021-05-05 12:17 | PROG NOTE ---
DATE: 05/05/2021 BRIEF HISTORY: Patient states he feels better. He looks better. Unfortunately, still on 10 liters to keep his O2 at 90. He is coughing, not as much. He is afebrile. BP is good. We talked about trying prone. He understood that and said he will do it. His WBC was 9.9. Hgb was 12. Electrolytes were all normal. Sodium minimally low at 136. D-dimer was still elevated at 600, but it is down. IMPRESSION: 1. PATIENT HAS COVID-19 PNEUMONIA. He is improving and hopefully will be able to lower his O2 in the next day or 2 and get him home. PROGNOSIS: Good.
[2021-05-05] MEDS: Pepcid 20 MG PO SCH (21:02)
[2021-05-06] MEDS ORDERED: OCEAN Nasal Spray NS PRN ×2 (00:50→07:29)
[2021-05-06 06:57] LABS: Hematocrit 36.3 % (42-50); Hemoglobin 11.9 gm/dl (12.5-18.0); Mean Cell Volume 85.4 fl (78-100); Mean Corpuscular Hgb Concent. 32.8 g/dl (32-36); Mean Platelet Volume 9.4 fl (7.5-11.0); Platelet Count 341 K/mm3 (150-450); Red Blood Count 4.25 M/mm3 (4.1-5.6); Red Cell Distribution Width 12.6 % (11.5-14.0); White Blood Count 10.1 K/mm3 (4.0-10.5)
[2021-05-06 07:13] LABS: ALBUMIN 3.1 g/dL (3.5-5.0); ALKALINE PHOSPHATASE 75 U/L (38-126); ANION GAP 8.5 MEQ/L (5-15); BLOOD UREA NITROGEN 25 mg/dL (9-20); CHLORIDE 103 mmol/L (98-107); Calcium 7.9 mg/dL (8.4-10.2); Carbon Dioxide 28 mmol/L (22-30); Creatinine 1 0.97 mg/dL (0.66-1.25); EST GLOMERULAR FILTRATION RATE > 60.0 ML/MIN; Glucose 105 mg/dL (74-106); SGOT/AST 28 U/L (17-59); SGPT/ALT 39 U/L (0-50); SODIUM 135 mmol/L (137-145); Total Protein 6.1 g/dL (6.3-8.2)
[2021-05-06] MEDS: Sodium Chloride 0.9% 1000 ML 1,000 ML IV SCH (07:19)
[2021-05-06 08:23] VITALS: BP 119/76
[2021-05-06] MEDS: DECADRON 10MG INJ. IV SCH (09:27)
[2021-05-06] MEDS: OLUMIANT PO SCH (09:27)
[2021-05-06] MEDS: ENOXAPARIN SODIUM SQ SCH (09:27)
[2021-05-06] MEDS: REMDESIVIR 100 MG in Sodium Chloride 0.9% 100 ML BAG 100 ML IV SCH (09:29)
[2021-05-06 11:46] VITALS: O2SAT 92
[2021-05-06 12:02] VITALS: PULSE 88
== END 2021-05-06 13:00 | disposition home or self-care (01) | DRG 177 ==
LOC: ED 08:02 → MED SURG 13:05
PROVIDERS: ADMIT Family Medicine; ATTEND Family Medicine
DX: U07.1 COVID-19 (principal); J12.82 Pneumonia due to coronavirus disease 2019; R09.02 Hypoxemia; E11.9 Type 2 diabetes mellitus without complications; R79.89 Other specified abnormal findings of blood chemistry; R00.0 Tachycardia, unspecified; Z85.118 Personal history of other malignant neoplasm of bronchus and lung
CPT/HCPCS: 36000; 36415; 36600; 71045; 71260; 80053; 81001; 82375; 82803; 83605; 83880; 84484; 85025; 85027; 85379; 86308; 87040; 87086; 87400; 93005; 94640; 94760; 94762; 96360; 96374; 96375; 99284; 99285; 99291; J0248; J1100; J1650; J2060; J2930; A9270-GY

== ENCOUNTER 2022-10-14 19:35 | Emergency (ER) | payer OTHER ==
[2022-10-14] MEDS ORDERED: Fluor-I-Strip/Ful-Flo OP ONE ×2 (20:02→20:34)
[2022-10-14] MEDS ORDERED: Eye-Stream Solution ONE (20:03)
[2022-10-14] MEDS ORDERED: Erythromycin 1 GM ONE (20:12)
--- NOTE | 2022-10-14 20:20 | ERPHSYRPT ---
- History of Present Illness Time Seen by Provider: 10/14/22 19:39 Source: patient Exam Limitations: no limitations Patient Subjective Stated Complaint: I was mowing and after mowing, my eye was really hurting. Triage Nursing Assessment: Pt ambulated into ER without diff. Pt alert and oriented x4, pleasant and cooperative. Pt c/o Left eye pain. Pt states, "I was mowing today and when I was done, my left eye was really bothering me. I rinsed it out with water and rubbed it, but its still hurting". Pt finished mowing around 7pm when the pain started. Left eye is red, bloodshot. Pt's vision isn't really affected, was seeing 20/30 from left and right eye individually and also 20/30 with both eyes. Physician History: 57 years old presented in the ER with chief complaint of left eye pain and redness/watering started almost an hour ago after mowing yard. Patient reports he felt there was something in his eye and tried to wash it out but still feels something inside on the upper lid area. Denies any visual disturbance. Dull aching to sharp mild to moderate pain. Does not use contacts. Timing/Duration: hour(s) (1), constant, sudden, worse Location: left eye Severity: moderate Apparent Injury: possibly Associated Symptoms: pain, burning, itching, sensitivity to light, redness, No eyelid swelling Visual Assistive Devices: None Chemical Exposure: No Trauma: No Welding Arc/Tanning Bed Exposure: No Allergies/Adverse Reactions: Penicillins Adverse Reaction (Intermediate, Verified 10/14/22 19:57) Anaphylactic Reaction Home Medications: No Reportable Medications [No Reported Medications] 05/02/21 [History] Hx Tetanus, Diphtheria Vaccination/Date Given: No Hx Influenza Vaccination/Date Given: No Hx Pneumococcal Vaccination/Date Given: No Immunizations Up to Date: No Travel Risk - International Travel Have you traveled outside of the country in past 3 weeks: No - Coronavirus Screening Are you exhibiting any of the following symptoms?: No Close contact with a COVID-19 positive Pt in past 14-21 Days: No - Vaccine Status Have you recieved a Covid-19 vaccination: No - Review of Systems Constitutional: No Symptoms Eyes: Eye Pain, Eye Redness, Itchy, Photophobia, Tearing, Foreign Body Sensation Ears, Nose, & Throat: No Symptoms Respiratory: No Symptoms Cardiac: No Symptoms Genitourinary Symptoms: No Symptoms Skin: No Symptoms Neurological: No Symptoms - Past Medical History Pertinent Past Medical History: Yes Neurological History: No Pertinent History ENT History: No Pertinent History Cardiac History: No Pertinent History Respiratory History: Pneumonia Endocrine Medical History: No Pertinent History Musculoskeletal History: Fractures GI Medical History: No Pertinent History History: No Pertinent History Psycho-Social History: No Pertinent History Male Reproductive Disorders: No Pertinent History Other Medical History: fx ribs. Covid - Past Surgical History Past Surgical History: Yes - Social History Smoking Status: Never smoker Exposure to second hand smoke: Yes Drug Use: none Patient Lives Alone: No - Nursing Vital Signs Nursing Vital Signs: Initial Vital Signs Temperature 97.4 F 10/14/22 19:42 Pulse Rate 86 10/14/22 19:42 Respiratory Rate 18 10/14/22 19:42 Blood Pressure 140/95 10/14/22 19:42 O2 Sat by Pulse Oximetry 98 10/14/22 19:42 Pain Scale Pain Intensity 4 - Physical Exam General Appearance: no apparent distress, alert Vision Acuity Right Eye: 20/30 Vision Acuity Left Eye: 20/30 Eye Exam: right eye: normal inspection, left eye: conjunctival hemorrhage, conjunctival inflammation, bilateral eye: PERRL, EOMI Ears, Nose, Throat Exam: normal ENT inspection Neck Exam: normal inspection, non-tender, supple, full range of motion Respiratory Exam: normal breath sounds, lungs clear Cardiovascular Exam: regular rate/rhythm, normal heart sounds Neurologic: alert, oriented x 3, cooperative, terminal 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-XII nml as tested, nml station & gait Skin Exam: normal color SpO2 Interpretation: normal SpO2: 98 O2 Delivery: Room Air Procedures - Eye Procedure Time of Procedure: 20:01 Timeout: Performed Tetracaine Drops Administered: Yes Eye FB Removal: removal w/ cotton swab Remaining Material after FB Removal: none Eye Irrigated w/ Saline (ccs): 30 Antibiotic Oinment/Drps Admin: left eye Progress: Tolerated procedure very well Ordered Tests: Medication Summary Generic Name Dose Route Start Last Admin Trade Name Freq PRN Reason Stop Dose Admin Erythromycin 1 gm 10/14/22 20:22 Erythromycin Base 1 Gm Tube Eye Ointment OP 10/14/22 20:23 STAT STA Discontinued Medications Generic Name Dose Route Start Last Admin Trade Name Nithya PRN Reason Stop Dose Admin Erythromycin Confirm 10/14/22 20:12 Erythromycin Base 1 Gm Tube Eye Ointment Administered 10/14/22 20:13 Dose 1 gm .ROUTE .STK-MED ONE Eye Irrigation Solution Confirm 10/14/22 20:03 Sodium/Potassium/Loyd/Magnesium 30 Ml Eye Wash Administered 10/14/22 20:04 Dose 30 ml .ROUTE .STK-MED ONE Fluorescein Sodium Confirm 10/14/22 20:02 Fluorescein Sodium 1 Mg/Strip Strip Administered 10/14/22 20:03 Dose 1 mg OP .STK-MED ONE - Progress Progress: improved Progress Note: 10/14/22 20:18 57 years old presented in the ER with chief complaint of left eye pain and redness/watering started almost an hour ago after mowing yard. Patient reports he felt there was something in his eye and tried to wash it out but still feels something inside on the upper lid area. Denies any visual disturbance. Dull aching to sharp mild to moderate pain. Does not use contacts. Minimal abrasion noticed that 1 o'clock position of cornea with fluorescein/Blake lamp exam. Foreign body in the upper lid is removed. No more foreign body seen. I believe has reactionary conjunctivitis, recommended Tylenol/ibuprofen, cool compresses and erythromycin ointment and outpatient follow-up with ophthalmology/optometry. Tetanus is updated. Discussed signs symptoms of worsening needing return to ER which she seems understanding. 10/14/22 20:24 Counseled pt/family regarding: diagnosis, need for follow-up Medical Desision Making - Risk of complications The pt has a mod risk of morbidity or mortality based on: Need for prescription drug management - Departure Departure Disposition: Home Clinical Impression: Foreign body of left eye Condition: Stable Critical Care Time: No Referrals: KELBY NUNES MD [Primary Care Provider] - Follow up with PCP 1 day KELBY MACIEL OD [NON-STAFF PHY W/O PRIVILEGES] - Follow up/PCP as directed (Call tomorrow for appointment for reevaluation) Instructions: Conjunctivitis (pink eye), Foreign Body in Eye (DC) Additional Instructions: Apply cool compresses intermittently. Tylenol/ibuprofen as needed. Use erythromycin ointment 1 cm ribbon 3-4 times a day. Follow-up with ophthalmology/optometry for reevaluation tomorrow. Return to ER for intractable pain, visual disturbance, eye discharge etc.
[2022-10-14] MEDS ORDERED: Erythromycin 1 GM OP STA (20:22)
[2022-10-14] MEDS ORDERED: Adacel Vial IM ONE ×2 (20:23→20:28)
[2022-10-14] MEDS ORDERED: Eye-Stream Solution OP ONE (20:27)
[2022-10-14 20:58] VITALS: BP 124/81; PULSE 84; O2SAT 96
== END 2022-10-14 20:58 | disposition home or self-care (01) ==
LOC: ED 19:35
DX: T15.82XA Foreign body in other and multiple parts of external eye, left eye, initial encounter (principal); W22.8XXA Striking against or struck by other objects, initial encounter; Y93.H2 Activity, gardening and landscaping; Y92.007 Garden or yard of unspecified non-institutional (private) residence as the place of occurrence of the external cause; H57.12 Ocular pain, left eye; Z23 Encounter for immunization; Z28.310 Unvaccinated for COVID-19
CPT/HCPCS: 67938; 90471; 90715; 99282; A9270-GY

== ENCOUNTER 2024-08-14 00:21 | Emergency (ER) | payer OTHER ==
[2024-08-14 00:32] VITALS: RESP 18; O2SAT 96
--- NOTE | 2024-08-14 00:43 | ERPHSYRPT ---
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 slight swelling noted to the right great toe, bruising starting to form at the place in injury as well. skin is intact. Physician History: 59-year-old male presented in the ER with complaints of right big toe pain after he accidentally hit it against the corner of the door while walking in the home. Patient reports moderate intensity sharp pain which hurts with palpation/movement send having difficulty flexion. No injury anywhere else. Allergies/Adverse Reactions: Penicillins Adverse Reaction (Intermediate, Verified 08/14/24 00:31) Anaphylactic Reaction trazodone Adverse Reaction (Verified 08/14/24 00:32) Home Medications: No Reportable Medications [No Reported Medications] 05/02/21 [History] Hx Tetanus, Diphtheria Vaccination/Date Given: No Hx Influenza Vaccination/Date Given: No Hx Pneumococcal Vaccination/Date Given: No Immunizations Up to Date: No Travel Risk - International Travel Have you traveled outside of the country in past 3 weeks: No - Emerging Infectious Disease Are you exhibiting symptoms associated with any current EIDs: No - Review of Systems Constitutional: No Symptoms Ears, Nose, & Throat: No Symptoms Respiratory: No Symptoms Cardiac: No Symptoms Musculoskeletal: Injury, Joint Pain Skin: No Symptoms Neurological: No Symptoms Endocrine: No Symptoms - Past Medical History Pertinent Past Medical History: Yes Neurological History: No Pertinent History ENT History: No Pertinent History Cardiac History: No Pertinent History Respiratory History: Pneumonia Endocrine Medical History: No Pertinent History Musculoskeletal History: Fractures GI Medical History: No Pertinent History History: No Pertinent History Psycho-Social History: No Pertinent History Male Reproductive Disorders: No Pertinent History Other Medical History: fx ribs. Covid - Past Surgical History Past Surgical History: No - Social History Smoking Status: Never smoker Exposure to second hand smoke: Yes Drug Use: none - Social Determinants of Health Will the patient participate in the screening: Yes Do you worry about a steady place to live?: No Do you have any problems with any of the following?: No known problems In the past 12 months,have you had to go without utilities?: No Transportation Issues: No Has anyone in your support network made you feel unsafe?: No Have you or anyone in your house had to go w/o enough food: No - Nursing Vital Signs Nursing Vital Signs: Initial Vital Signs Pulse Rate 99 H 08/14/24 00:24 Respiratory Rate 18 08/14/24 00:24 Blood Pressure 149/89 08/14/24 00:24 O2 Sat by Pulse Oximetry 96 08/14/24 00:24 Pain Scale Pain Intensity 7 - Physical Exam General Appearance: no apparent distress Neck Exam: normal inspection, full range of motion Cardiovascular/Respiratory Exam: normal breath sounds, regular rate/rhythm Back Exam: normal range of motion Foot Exam: right foot: bone tenderness, limited range of motion, pain, soft tissue tenderness Neuro/Tendon Exam: normal sensation, normal motor functions Mental Status Exam: alert, oriented x 3, cooperative Skin Exam: normal color SpO2 Interpretation: normal SpO2: 96 O2 Delivery: Room Air Ordered Tests: Active Orders 24 hr Category Date Time Status TOE(S) (MIN 2 VIEWS) Stat Exams 08/14/24 00:46 Taken - Progress Progress: unchanged Progress Note: 08/14/24 00:57 Differential diagnosis: Toe contusion/toe fracture/toe dislocation 49-year-old is evaluated in the ER for right big toe pain after he accidentally hit against the corner of the door earlier. Is offered pain medication which she declined. I have obtained x-rays where I do not see any obvious fracture dislocation interpreted by me, official final read is pending. I believe patient has toe contusion, alex taping done, recommended weightbearing as tolerated and outpatient follow-up. Discussed signs symptoms of worsening needing return to ER which she seems understanding. Stable for discharge. Complexity of problems addressed: Mild acute Complexity of data reviewed/analyzed: Mild Risk of complication: Low risk Counseled pt/family regarding: diagnosis, need for follow-up, rad results Medical Desision Making - Diagnostic Testing Diagnostic test were ordered, analyzed, and reviewed by me: Yes Radiological Interpretation: Interpreted by me - Departure Departure Disposition: Home Clinical Impression: Contusion of toe of right foot Condition: Stable Critical Care Time: No Referrals: KELBY NUNES MD [Primary Care Provider, FAMILY PRACTICE] - Follow up with PCP 1 day DUNIA RUSSELL DPM [ACTIVE STAFF, PODIATRY] - Follow up/PCP as directed Referral Note: 1-2 days for reevaluation Instructions: Toe Injury (DC) Additional Instructions: Take Tylenol/ibuprofen as needed. Follow-up with podiatry/orthopedics for reevaluation tomorrow between 8 and 10 AM as walk-in. Return to ER for any worsening.
[2024-08-14 01:23] VITALS: BP 129/89; PULSE 71
--- NOTE | 2024-08-14 08:52 | XRAY ---
Indication: Pain following injury. Comparison: None 3 view right great toe demonstrates mild IP joint degenerative changes. No other bony, articular, or soft tissue abnormalities.
== END 2024-08-14 01:06 | disposition home or self-care (01) ==
LOC: ED 00:21
DX: S90.111A Contusion of right great toe without damage to nail, initial encounter (principal); W22.8XXA Striking against or struck by other objects, initial encounter
CPT/HCPCS: 73660; 99283